=== PATIENT | female | born 2005 | race Caucasian/White ===

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

== ENCOUNTER 2024-06-03 10:43 | Day surgery (SDC) | payer OTHER ==
[2024-06-03] MEDS: IV FLUID CONTINUATION 1,000 ML IV ONE (11:51)
[2024-06-03 12:01] VITALS: RESP 16; TEMP 97.5
[2024-06-03] MEDS: LACTATED RINGERS 1,000 ML IV SCH (12:05)
[2024-06-03] MEDS ORDERED: LIDOCAINE 1% INJ 10MG/ML (20 ML MDV) ONE (12:33)
[2024-06-03] MEDS ORDERED: PROPOFOL 10 MG/ML 20 ML VIAL IV ONE (12:33)
--- NOTE | 2024-06-03 12:43 | P.PCN ---
Date of Procedure: 06/03/24 Procedure(s) Performed: BRIEF HISTORY: Patient is a 18-year-old, pleasant, white female scheduled an upper endoscopy as a part evaluation of intermittent episodes of nausea vomiting for the last few weeks duration. She was recently started on Protonix 40 mg daily and symptoms are gradually improving.. PROCEDURE PERFORMED: Esophagogastroduodenoscopy with biopsy. PREOPERATIVE DIAGNOSIS: Chronic nausea vomiting. IV sedation per anesthesia. PROCEDURE: After informed consent was obtained, the patient was brought into the endoscopy unit. IV sedation was administered by Anesthesia under continuous monitoring. Initially the Olympus GIF-140 video endoscope was inserted into the mouth. Esophagus intubated without any difficulty. It was gradually advanced into the stomach and duodenum and carefully examined. The bulb and the second part of the duodenum appeared normal. Apices were done from the duodenum rule out celiac disease. The scope at this time was withdrawn to the stomach, adequately insufflated with air, and upon careful examination, mucosa of the antrum, had a 7 to 8 mm submucosal polyp identified that was biopsied. Mucosa of the body, cardia and the fundus appeared normal. The scope was then withdrawn into the esophagus. Small hiatal hernia noted. The GE junction was located at 39 cm from the incisors. The esophagus appeared normal. There were no erosions or ulcerations seen biopsies were done from the distal esophagus and the patient tolerated the procedure well. IMPRESSION: 1. Small hiatal hernia. 2. 7 to 8 mm gastric antral submucosal polyp status post biopsy. RECOMMENDATIONS: The findings of this examination were discussed with the patient as well as his family. She was advised to follow-up with the biopsy results. Continue with Protonix 40 mg daily and follow antireflux measures. Follow-up in the office in 2 weeks..
[2024-06-03 13:08] VITALS: BP 114/74; PULSE 72
== END 2024-06-03 13:19 | disposition home or self-care (01) ==
LOC: ORWHC2ENDO 10:43
PROVIDERS: ATTEND Internal Medicine Gastroenterology
DX: K29.50 Unspecified chronic gastritis without bleeding (principal); K31.A11 Gastric intestinal metaplasia without dysplasia, involving the antrum; K44.9 Diaphragmatic hernia without obstruction or gangrene; F32.A Depression, unspecified; F41.9 Anxiety disorder, unspecified; K21.9 Gastro-esophageal reflux disease without esophagitis; Z98.890 Other specified postprocedural states; Z79.899 Other long term (current) drug therapy
CPT/HCPCS: 81025; 43239; J2003; J2704; 88305

== ENCOUNTER → 2024-06-11 | Outpatient (CLI) | payer OTHER ==
--- NOTE | 2024-06-11 18:55 | CA ---
Transthoracic Echo Report Name: Mayelin Mulligan Age: 18 Gender: F : 2005 Exam Date: 06/11/2024 11:30 Exam Location: [place] [facility] Ht (in): 66 Wt (lb): 116 Ordering Physician: Negrito Meraz MD Attending/Referring Phys: Anastasiia Mitchell PAC [employer] Mehreen Huerta RDCS Procedure CPT: Indications: I51.7 Cardiomegaly Cardiac Hx: Technical Quality: Excellent Contrast 1: Total Dose (mL): Contrast 2: Total Dose (mL): MEASUREMENTS (Male / Female) Normal Values 2D ECHO LV Diastolic Diameter PLAX 4.0 cm 4.2 - 5.9 / 3.9 - 5.3 cm LV Systolic Diameter PLAX 2.5 cm IVS Diastolic Thickness 0.9 cm 0.6 - 1.0 / 0.6 - 0.9 cm LVPW Diastolic Thickness 1.0 cm 0.6 - 1.0 / 0.6 - 0.9 cm LV Relative Wall Thickness 0.5 RV Internal Dim ED PLAX 2.3 cm LA Systolic Diameter LX 2.7 cm 3.0 - 4.0 / 2.7 - 3.8 cm LV Diastolic Volume MOD BP 56.5 cm??? 67 - 155 / 56 - 104 cm??? LV Systolic Volume MOD BP 20.5 cm??? 22 - 58 / 19 - 49 cm??? LV Ejection Fraction MOD BP 63.7 % >= 55 % LV Cardiac Index MOD BP 2266.0 cm???/min???m??? LV Diastolic Volume MOD 4C 50.5 cm??? LV Systolic Volume MOD 4C 17.4 cm??? LV Ejection Fraction MOD 4C 65.6 % LV Cardiac Index MOD 4C 2086.3 cm???/min???m??? LV Diastolic Length 4C 6.7 cm LV Systolic Length 4C 5.0 cm LV Diastolic Volume MOD 2C 62.3 cm??? LV Systolic Volume MOD 2C 21.9 cm??? LV Ejection Fraction MOD 2C 64.9 % LV Cardiac Index MOD 2C 2543.0 cm???/min???m??? LV Diastolic Length 2C 6.9 cm LV Systolic Length 2C 5.5 cm M-MODE Aortic Root Diameter MM 2.3 cm LA Systolic Diameter MM 3.0 cm LA Ao Ratio MM 1.3 AV Cusp Separation MM 1.7 cm DOPPLER Mitral E Point Velocity 91.8 cm/s Mitral A Point Velocity 73.4 cm/s Mitral E to A Ratio 1.2 MV Deceleration Time 300.9 ms FINDINGS Left Ventricle Left ventricular ejection fraction is estimated at 55-60 %. Normal Left ventricular size, wall thickness, systolic function with no obvious regional wall motion abnormalities. Normal Left ventricular diastolic filling pattern. Right Ventricle Normal right ventricular size and function. Right ventricular systolic pressure within normal limits. Right Atrium Normal right atrial size. Left Atrium Normal left atrial size. Mitral Valve Structurally normal mitral valve. Trace mitral regurgitation. No mitral stenosis. Aortic Valve Trileaflet aortic valve. No aortic valve stenosis or regurgitation. Tricuspid Valve Structurally normal tricuspid valve. Trace tricuspid regurgitation. No tricuspid stenosis. Pulmonic Valve Structurally normal pulmonic valve. Trace pulmonic regurgitation. No pulmonic stenosis. Pericardium No pericardial or pleural effusion. Aorta Normal size aortic root and proximal ascending aorta. CONCLUSIONS 1. Normal ventricle size and systolic function 2. Trace mitral and tricuspid regurgitation Previewed by: Dr. Pato Casarez MD (Electronically Signed) Final Date: 11 June 2024 18:54
== END | disposition home or self-care (01) ==
LOC: RADECHMAIN 11:21
PROVIDERS: ATTEND Family Medicine
DX: I08.1 Rheumatic disorders of both mitral and tricuspid valves (principal)
CPT/HCPCS: 93306